=== PATIENT | female | born 1985 | race Caucasian/White ===

== ENCOUNTER 2020-10-09 18:15 | Emergency (ER) | payer BC, SELFPAY ==
[2020-10-09 18:29] VITALS: BP 115/60; PULSE 75; RESP 16; TEMP 36.6; O2SAT 99
--- NOTE | 2020-10-09 18:33 | ED.URI ---
HPI - URI/Sore Throat General Chief Complaint: Upper Respiratory Infection Stated Complaint: SORE THROAT/COUGH/HEADACHE Time Seen by Provider: 10/09/20 18:48 Source: patient and RN notes reviewed Mode of arrival: ambulatory Limitations: no limitations History of Present Illness HPI Narrative: 34-year-old female presents concern for 2-day history of body aches, general malaise, sore throat, cough, nasal congestion, rhinorrhea. Reports she has been taking Mucinex, Tylenol, ibuprofen. She denies known sick contacts. She denies fever, shortness of breath, nausea, vomiting, diarrhea. MD elicited complaint: sore throat Related Data Home Medications Medication Instructions Recorded Confirmed brexpiprazole [Rexulti] mg 10/09/20 fluoxetine mg 10/09/20 Allergies Allergy/AdvReac Type Severity Reaction Status Date / Time No Known Allergies Allergy Unverified 10/09/20 18:35 Review of Systems Review of Systems: CONSTITUTIONAL: Reports malaise. Chills, sweats, or fever. EYES: Denies visual changes, redness, or discharge. ENT: Reports rhinorrhea, congestion, sore throat. Denies sinus pain, otalgia CARDIOVASCULAR: Denies chest pain, palpitations, or edema. RESPIRATORY: Reports cough. Denies dyspnea. GASTROINTESTINAL: Denies abdominal pain, nausea, vomiting, diarrhea SKIN: Denies rash or itching. MUSCULOSKELETAL: Reports myalgia. NEUROLOGIC: Denies headache. All systems reviewed & are unremarkable except as noted in HPI and below PMFSH Family History Family History (Updated 03/18/16 @ 08:18 by DOCTOR UNKNOWN) Mother Family history of type 2 diabetes mellitus Social History Social History Smoking status: Never smoker Alcohol intake: never Comments At time of signature, agree with nursing past medical, surgical, social and family history. There is no relevant family history pertinent to the presenting complaint Exam Narrative: GENERAL: Well-appearing, well-nourished, and in no acute distress. HEAD: Normocephalic EYES: PERRLA, conjunctivae clear ENT: Nares clear, turbinates edematous and erythematous, clear discharge. Mucous membranes moist. TM pearly gordon with dull light reflex bilaterally; no tragal tenderness. Oropharynx erythematous without lesions. Tonsils enlarged and without exudate, no drooling, no hoarseness, no trismus, uvula midline. NECK: Supple. No lymphadenopathy CHEST: Clear to auscultation, breath sounds equal. No wheezing, rhonchi, rales, or stridor. No respiratory distress, speaks in full sentences. HEART: Regular rate and rhythm. No murmur heard. SKIN: Warm, dry, no rash. NEURO: Alert and oriented x3. PSYCH: Normal mood and affect Course Course Emergency Course: Patient is aware of diagnosis, understands and agrees to treatment plan. Anticipatory guidance given. Patient agrees to follow-up as directed and is aware of reasons to seek care at the emergency department. Portions of this record may have been created with voice recognition software Vital Signs Vital signs: Reviewed. MDM - URI/Sore Throat MDM Narrative Medical decision making narrative: Differential diagnosis considered: Zuleta virus, strep pharyngitis, allergic rhinitis, upper respiratory tract infection, sinusitis, rhinosinusitis, nasopharyngitis. viral pharyngitis, otitis media, otitis externa, pneumonia, bronchitis, viral cough syndrome, viral syndrome, and influenza. Exam findings show no acute concerns or changes; patient is non-toxic appearing and is in no distress. Patient is appropriate for outpatient treatment and follow-up. Lab Data Attestation: I reviewed the patient's lab results. Lab results narrative: Rapid Covid negative, rapid strep negative. PCR Covid to be sent to confirm Critical Care Time Critical Care Time Critical Care Time: No Discharge Plan Discharge Clinical Impression: Upper respiratory infection Qualifiers: URI type: unspecified viral URI Qualified Code(s): J06.9 - Acute upper respiratory i
[2020-10-11 21:00] LABS: SARS-CoV-2 RNA PCR Negative
== END 2020-10-09 19:12 | disposition home or self-care (01) ==
PROVIDERS: Emergency Provider Nurse Practitioner; PCP Family Medicine
DX: J02.9 Acute pharyngitis, unspecified (principal); J06.9 Acute upper respiratory infection, unspecified; Z20.822 Contact with and (suspected) exposure to COVID-19
CPT/HCPCS: 87081; 87426; 87880; 99213; C9803; G0463; U0003; U0005

== ENCOUNTER 2021-01-10 12:03 | Emergency (ER) | payer BC, SELFPAY ==
[2021-01-10 12:20] VITALS: BP 118/72; PULSE 107; RESP 16; TEMP 36.6; O2SAT 99
--- NOTE | 2021-01-10 12:54 | ED.URI ---
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 No fever, sputum changes, significant sore throat; no loss of taste/smell, CP, vomiting/diarrhea, S OB. Related Data Home Medications Medication Instructions Recorded Confirmed brexpiprazole [Rexulti] 0.5 mg PO DAILY 10/09/20 10/09/20 fluoxetine 40 mg PO DAILY 10/09/20 10/09/20 Allergies Allergy/AdvReac Type Severity Reaction Status Date / Time No Known Allergies Allergy Unverified 01/10/21 12:17 Review of Systems Review of Systems: General/Constitutional: No weight loss,fever Eyes: N0: Redness,discharge Ears/Nose/Throat: No: Epistaxis,ear discharge Respiratory: Denies: Hemoptysis Gastrointestinal: No Vomiting, Bleeding-rectal Skin: No Lumps, eruption Neurologic: No Focal Weakness,Sz Hematologic: Denies: Petechiae/Purpura Psychiatric: No: Suicida ideationl All Other Systems: Reviewed and Negative [facility] Family History Family History (Updated 03/18/16 @ 08:18 by DOCTOR UNKNOWN) Mother Family history of type 2 diabetes mellitus Social History Social History Smoking status: Never smoker Alcohol intake: never Comments At time of signature, agree with nursing past medical, surgical, social and family history. There is no relevant family history pertinent to the presenting complaint Exam Narrative: General Appearance: Well appearing, Well nourished EYE: PERRLA, Conjunctiva clear Ears: Auditory canal normal, TM normal Nose: Rhinorrhea, Mucousal erythema Mouth/Throat: MM moist, Uvula midline, Pharyngeal erythema Neck: Supple, No adenopathy Respiratory: No respiratory distress, Breath sounds equal, Clear to auscultation Cardiovascular: RRR, No JVD Musculoskeletal: Non tender, Normal strength Skin: Warm, Dry Neurological: A&O x3, CN II-XII intact Psychiatric: Normal mood, Normal affect Course Vital Signs Vital signs: Vital Signs Temperature 97.9 F 01/10/21 12:20 Pulse Rate 107 H 01/10/21 12:20 Respiratory Rate 16 01/10/21 12:20 Blood Pressure 118/72 01/10/21 12:20 Pulse Oximetry 99 01/10/21 12:20 Temperature 97.9 F 01/10/21 12:20 Pulse Rate 107 H 01/10/21 12:20 Respiratory Rate 16 01/10/21 12:20 Blood Pressure 118/72 01/10/21 12:20 Pulse Oximetry 99 01/10/21 12:20 Discharge Plan Discharge Clinical Impression: Sinus headache Patient Disposition: Home, Self-Care Condition: Stable Instructions: Antibiotic Form, Rhinosinusitis (ED) Prescriptions: New azithromycin 250 mg tablet See Rx Instructions .ROUTE .COMPLEX Qty: 6 RF: 0 azelastine 137 mcg (0.1 %) aerosol,spray 137 mcg NASAL Q12H Qty: 30 RF: 0 No Action fluoxetine 40 mg capsule 40 mg PO DAILY RF: 0 Rexulti 0.5 mg tablet 0.5 mg PO DAILY RF: 0 cetirizine-pseudoephedrine [Zyrtec-D] 5-120 mg tablet extended release 12 hr 1 tablet PO Q12H PRN (Reason: nasal congestion) Qty: 12 RF: 0 Follow-up/Referrals: Dwight Elliott DMD [Primary Care Provider] - Stand Alone Forms: Work/School Release IP
== END 2021-01-10 13:00 | disposition home or self-care (01) ==
PROVIDERS: Emergency Provider Emergency Medicine; PCP Dentist
DX: J32.9 Chronic sinusitis, unspecified (principal)
CPT/HCPCS: 87420; 87804; 99213; G0463

== ENCOUNTER → 2021-01-12 08:41 | Outpatient (CLI) | payer BC, SELFPAY ==
[2021-01-12 19:12] LABS: SARS-CoV-2 RNA PCR Positive
== END ==
PROVIDERS: PCP Family Medicine; Visit Provider Emergency Medicine
DX: U07.1 COVID-19 (principal)
CPT/HCPCS: C9803; U0003; U0005

== ENCOUNTER 2022-03-28 14:08 | Emergency (ER) | payer OTHER, SELFPAY ==
[2022-03-28 14:37] VITALS: BP 112/67; PULSE 105; RESP 18; TEMP 36.6; O2SAT 98
--- NOTE | 2022-03-28 18:54 | ED.SKABFB ---
HPI - Skin/Abscess/Foreign Bdy General Chief complaint: Skin/Abscess/Foreign Body Stated complaint: infected cyst Time Seen by Provider: 03/28/22 18:40 History of Present Illness HPI narrative: 36-year-old female reports for localized swelling and pain to her labia x3 days. Patient states she felt tender 3 days ago, the next day woke up and noticed swelling. She then went to urgent care was diagnosed with a Bartholin's abscess, started on Bactrim and told to go to the ED if she experiences worsening pain or fever. Patient states this morning she woke up and had a 101 fever and nausea. She has been controlling her fever with naproxen and Tylenol, last dose of naproxen 13 hours ago, last dose of Tylenol 6 hours ago. Denies body aches, chills, vomiting, diarrhea, abdominal pain, abnormal vaginal discharge, urinary complaints. LMP 2/6. She has never had this problem before. She currently does not have an PHARMACY COORDINATOR and has been seeing her primary care for Pap smears. Related Data Home Medications Medication Instructions Recorded Confirmed brexpiprazole 0.5 mg tablet 0.5 mg PO DAILY 10/09/20 10/09/20 (Rexulti) fluoxetine 40 mg capsule 40 mg PO DAILY 10/09/20 10/09/20 Allergies Allergy/AdvReac Type Severity Reaction Status Date / Time No Known Allergies Allergy Unverified 01/10/21 12:17 Review of Systems Review of Systems: CONSTITUTIONAL: Denies chills. Reports fever EYES: Denies visual changes, redness, or discharge. ENT: Denies rhinorrhea, congestion, sore throat, or otalgia. CARDIOVASCULAR: Denies chest pain, palpitations, or edema. RESPIRATORY: Denies cough or dyspnea. GASTROINTESTINAL: Denies abdominal pain, vomiting, or diarrhea. GENITOURINARY: Denies dysuria or hematuria. SKIN: Denies rash or itching. MUSCULOSKELETAL: Denies back pain, joint pain, or myalgia. NEUROLOGIC: Denies headache, numbness, dizziness, or weakness. PSYCHIATRIC: Denies anxiety or depression. [facility] Family History Family History Mother Family history of type 2 diabetes mellitus Social History Social History Smoking status: Never smoker Alcohol intake: never Exam Narrative: GENERAL: Well-appearing, well-nourished, and in no acute distress. HEAD: Normocephalic, atraumatic. EYES: PERRLA and EOMI. ENT: Nares clear, no rhinorrhea or epistaxis. Mucous membranes moist. NECK: Supple. No adenopathy or masses. CHEST: Clear to auscultation. No respiratory distress. No wheezes rales or rhonchi HEART: Regular rate and rhythm. No murmur heard. Normal peripheral pulses. ABDOMEN: Soft, nontender, nondistended, normal active bowel sounds. EXTREMITIES: Normal range of motion. No edema. ADULT NEUROPSYCHOLOGIST: External genital exam reveals a 2 cm area of fluctuation with white head to the left labia at the 4 o'clock position. No surrounding erythema or edema. SKIN: Warm, dry, no rash. NEURO: No focal deficits. Alert and oriented x3. PSYCH: Normal mood and affect. Course Vital Signs Vital signs: Vital Signs Temperature 98 F 03/28/22 14:37 Pulse Rate 105 H 03/28/22 14:37 Respiratory Rate 18 03/28/22 14:37 Blood Pressure 112/67 03/28/22 14:37 Pulse Oximetry 98 03/28/22 14:37 Oxygen Delivery Room Air 03/28/22 14:37 Temperature 98 F 03/28/22 14:37 Pulse Rate 105 H 03/28/22 14:37 Respiratory Rate 18 03/28/22 14:37 Blood Pressure 112/67 03/28/22 14:37 Pulse Oximetry 98 03/28/22 14:37 Oxygen Delivery Room Air 03/28/22 14:37 Procedures Abscess I/D bartholin's gland: Date of Incision: 03/28/22 Time of Incision: 19:20 Side (if applicable): left Local Anesthetic: lidocaine 1% Amount of anesthesia used (mL): 2 Technique: incised with #11 blade Amount of fluid expressed (mL): 3 Irrigation: No Packing used?: iodoform I&D Results: Pus and Blood
[2022-03-28] MEDS: ONDANSETRON HCL ODT 4 MG TABLET PO (19:10)
[2022-03-28 20:26] VITALS: BP 102/57; PULSE 68; RESP 16; O2SAT 97
== END 2022-03-28 20:27 | disposition home or self-care (01) ==
PROVIDERS: Emergency Provider Physician Assistant; PCP Family Medicine
DX: N75.1 Abscess of Bartholin's gland (principal)
CPT/HCPCS: 56420; 99283; A9270